=== PATIENT | female | born 1955 | race Caucasian/White ===

== ENCOUNTER 2020-11-12 18:49 | Emergency (ER) | payer OTHER, MEDICAID ==
[~2020-11-12] VITALS: Ht 160 cm; Wt 72.6 kg
[2020-11-12 20:15] VITALS: Ht 160 cm; Wt 72.6 kg
[2020-11-12 20:17] VITALS: BP 133/84
== END 2020-11-12 20:17 | disposition home or self-care (01) ==
LOC: ED 18:49
DX: S42.151A Displaced fracture of neck of scapula, right shoulder, initial encounter for closed fracture (principal); W18.39XA Other fall on same level, initial encounter; Y93.89 Activity, other specified; Y92.89 Other specified places as the place of occurrence of the external cause; Y99.8 Other external cause status
CPT/HCPCS: J1885